=== PATIENT | male | born 1960 | race Caucasian/White ===

== ENCOUNTER 2016-12-06 11:27 | Emergency (ER) | payer OTHER ==
[~2016-12-06] VITALS: Ht 175.3 cm; Wt 81.5 kg
[2016-12-06 11:30] VITALS: BP 132/74; PULSE 74; RESP 20; TEMP 97.7; O2SAT 96
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
[2016-12-06] MEDS ORDERED: CYCLOBENZAPRINE HCL 10 MG TAB PO ONE (13:45)
[2016-12-06] MEDS ORDERED: IBUPROFEN 800 MG TAB PO ONE (13:45)
[2016-12-06] MEDS ORDERED: IBUP800T23 PO (13:46)
[2016-12-06] MEDS ORDERED: CYCL1TAB29 PO (13:46)
[2016-12-06] MEDS ORDERED: LOSA50TA PO (13:59)
[2016-12-06] MEDS ORDERED: SERT-129 PO (13:59)
[2016-12-06] MEDS ORDERED: AMBI10TA PO (13:59)
[2016-12-06] MEDS ORDERED: LEVO.05 PO (13:59)
--- NOTE | 2016-12-07 13:10 | EKG ---
Date Performed: 12/06/2016 Time Performed: 14:01:03 PTAGE: 56 years EKG: SINUS VS AN ECTOPIC ATRIAL RHYTHM RIGHT ATRIAL ENLARGEMENT POSSIBLE LEFT ATRIAL ENLARGEMENT ABNORMAL ECG INTERPRETATION BASED ON A DEFAULT AGE OF 40 YEARS NO PREVIOUS TRACING DOCTOR: Al Rose Interpretating Date/Time 12/07/2016 13:09:35
== END 2016-12-06 14:02 | disposition home or self-care (01) ==
LOC: NEPD 11:27
DX: S16.1XXA Strain of muscle, fascia and tendon at neck level, initial encounter (principal); S39.012A Strain of muscle, fascia and tendon of lower back, initial encounter; M62.838 Other muscle spasm; M25.561 Pain in right knee; I10 Essential (primary) hypertension; V89.2XXA Person injured in unspecified motor-vehicle accident, traffic, initial encounter
CPT/HCPCS: 72050; 72110; 93005; 99283

== ENCOUNTER 2017-01-20 18:00 | Observation (INO) | payer SELFPAY ==
[~2017-01-20 18:00] MED LIST: AMBI10TA PO; CYCL1TAB29 PO; IBUP800T23 PO; LEVO.05 PO; LOSA50TA PO; SERT-129 PO
[2017-01-20 18:10] VITALS: BP 130/79; PULSE 73; RESP 18; TEMP 97.7; O2SAT 98
[2017-01-20] MEDS ORDERED: SODIUM CHLOR 0.9% 1000 ML INJ 1,000 ML IV ONE (18:22)
--- NOTE | 2017-01-20 18:26 | PD ---
HPI Chief Complaint: Neuro Symptoms/ Deficits Time Seen by Provider: 18:22 Travel History International Travel<30 days: No Contact w/Intl Traveler<30days: No Traveled to known affect area: No History of Present Illness HPI 56-year-old male presents with his son with note of left arm and left lower face numbness and tingling since yesterday morning. He states he has no other associated symptoms including weakness or other concerns. He denies taking aspirin. He denies prior history of this or stroke. Quality is tingly. Location is arm and lower face on the left. Patient is a poor historian and his son helps supplement [facility] Past Medical History Hx Anticoagulant Therapy: No Depression: Yes Cardiovascular Problems: Yes Chemotherapy: No Cerebrovascular Accident: No Diabetes: No Diminished Hearing: No Hypertension: Yes Psychiatric: Yes Respiratory: No Triglycerides - High: Yes Influenza Vaccination: No ?: Not Past Surgical History Abdominal Surgery: Yes (HERNIA) Appendectomy: Yes Social History Alcohol Use: No Tobacco Use: No Substance Use: No Allergies-Medications (Allergen,Severity, Reaction): Coded Allergies: No Known Allergies (Unverified , 01/20/17) Reported Meds & Prescriptions Reported Meds & Active Scripts Active Reported Sertraline (Sertraline HCl) 100 Mg Tab 100 Mg PO DAILY Synthroid (Levothyroxine Sodium) 50 Mcg Tab 50 Mcg PO DAILY Losartan (Losartan Potassium) 50 Mg Tab 50 Mg PO DAILY@1600 Review of Systems Except as stated in HPI: all other systems reviewed are Neg Physical Exam Narrative GENERAL: Well-nourished, well-developed patient. SKIN: Warm and dry. HEAD: Normocephalic and atraumatic. EYES: No injection or drainage. ENT: No nasal drainage noted. NECK: Supple, trachea midline. CARDIOVASCULAR: Regular rate and rhythm RESPIRATORY: No increased effort. No accessory muscle use. GASTROINTESTINAL: Abdomen soft, non-tender, nondistended. EXTREMITIES: No edema. NEUROLOGICAL: Awake and alert. Motor and sensory grossly within normal limits except for states it feels tingly to left lower face and entire left arm. Normal speech. No facial droop, no pronator drift, equal grasp bilaterally Data Data Last Documented VS Vital Signs Date Time Temp Pulse Resp B/P (MAP) Pulse Ox O2 Delivery O2 Flow Rate FiO2 01/20/17 18:37 75 18 127/62 (83) 98 Room Air 01/20/17 18:10 97.7 Orders Orders Nursing Bedside Swallow Assess .ONCE (01/20/17 18:22) Activity Bed Rest (01/20/17 18:22) Prothrombin Time / Inr (Pt) (01/20/17 18:22) Act Partial Throm Time (Ptt) (01/20/17 18:22) Complete Blood Count With Diff (01/20/17 18:22) Basic Metabolic Panel (Bmp) (01/20/17 18:22) Creatine Kinase (Cpk) (01/20/17 18:22) Troponin I (01/20/17 18:22) Ua Includes Microscopic (01/20/17 18:22) Drug Screen, Random Urine (01/20/17 18:22) Ct Brain W/O Iv Contrast(Rout) (01/20/17 ) Chest, Single Ap (01/20/17 ) Electrocardiogram (01/20/17 ) Sodium Chlor 0.9% 1000 Ml Inj (Ns 1000 M (01/20/17 18:22) Blood Glucose (01/20/17 18:22) Ecg Monitoring (01/20/17 18:22) Iv Access Insert/Monitor (01/20/17 18:22) NPO (01/20/17 18:22) Oximetry (01/20/17 18:22) Labs Laboratory Tests Test 01/20/17 18:30 01/20/17 18:35 White Blood Count 5.4 TH/MM3 Red Blood Count 4.79 MIL/MM3 Hemoglobin 14.2 GM/DL Hematocrit 43.0 % Mean Corpuscular Volume 89.7 FL Mean Corpuscular Hemoglobin 29.7 PG Mean Corpuscular Hemoglobin Concent 33.1 % Red Cell Distribution Width 13.7 % Platelet Count 228 TH/MM3 Mean Platelet Volume 7.3 FL Neutrophils (%) (Auto) 69.7 % Lymphocytes (%) (Auto) 22.6 % Monocytes (%) (Auto) 6.1 % Eosinophils (%) (Auto) 1.0 % Basophils (%) (Auto) 0.6 % Neutrophils # (Auto) 3.8 TH/MM3 Lymphocytes # (Auto) 1.2 TH/MM3 Monocytes # (Auto) 0.3 TH/MM3 Eosinophils # (Auto) 0.1 TH/MM3 Basophils # (Auto) 0.0 TH/MM3 CBC Comment DIFF FINAL Differential Comment MDM Medical Decision Making Medical Screen Exam Complete: Yes Emergency Medical Condition: Yes Medical Record Reviewed: Yes (past history confirmed) Interpretation(s) EKG shows NSR, no ST elevation or depression, and no arrhythmias. No significant T-wave inversions. Differential Diagnosis TIA, stroke, mass, bleed Narrative Course Will check labs, imaging and reevaluate Physician Communication Physician Communication dr jay will follow workup and admit Jennifer Cruz MD Jan 20, 2017 18:26
[2017-01-20 18:37] VITALS: BP 127/62; PULSE 75; RESP 18; O2SAT 98
[2017-01-20 18:48] LABS: AUTOMATED NEUTROPHIL # 3.8 TH/MM3 (1.8-7.7); BASOPHIL % 0.6 % (0.0-2.0); EOSINOPHIL # 0.1 TH/MM3 (0-0.4); HEMO FLAGS DIFF FINAL; LYMPH % 22.6 % (9.0-44.0); LYMPHOCYTE # 1.2 TH/MM3 (1.0-4.8); MEAN CELL VOLUME 89.7 FL (80.0-100.0); MEAN CORPUSCULAR HEMOGLOBIN 29.7 PG (27.0-34.0); MEAN CORPUSCULAR HGB CONC 33.1 % (32.0-36.0); MONO % 6.1 % (0.0-8.0); NEUT % 69.7 % (16.0-70.0); PLATELET COUNT 228 TH/MM3 (150-450); RED BLOOD COUNT 4.79 MIL/MM3 (4.50-5.90); RED CELL DISTRIBUTION WIDTH 13.7 % (11.6-17.2); WHITE BLOOD COUNT 5.4 TH/MM3 (4.0-11.0)
[2017-01-20 18:49] LABS: BLOOD, URINE NEG (NEG); GLUCOSE,URINE NEG (NEG); KETONE, URINE NEG (NEG); NITRITE,URINE NEG (NEG)
[2017-01-20 18:56] LABS: URINE COLOR STRAW (YELLW/STRAW)
--- NOTE | 2017-01-20 18:57 | RADRPT ---
EXAM DATE/TIME: 01/20/2017 18:43 [facility] COMPARISON: No previous studies available for comparison. INDICATIONS : Dizziness. RADIATION DOSE: 58.38 CTDIvol (mGy) MEDICAL HISTORY : Hypertension. SURGICAL HISTORY : Appendectomy. ENCOUNTER: Initial ACUITY: 1 day PAIN SCALE: 0/10 LOCATION: cranial TECHNIQUE: Multiple contiguous axial images were obtained of the head. Using automated exposure control and adj ustment of the mA and/or kV according to patient size, radiation dose was kept as low as reasonably a chievable to obtain optimal diagnostic quality images. DICOM format image data is available electro nically for review and comparison. FINDINGS: CEREBRUM: The ventricles are normal for age. No evidence of midline shift, mass lesion, hemorrhage or acute in farction. No extra-axial fluid collections are seen. POSTERIOR FOSSA: The cerebellum and brainstem are intact. The 4th ventricle is midline. The cerebellopontine angle i s unremarkable. EXTRACRANIAL: The visualized portion of the orbits is intact. SKULL: The calvaria is intact. No evidence of skull fracture. CONCLUSION: Normal examination for a patient of this age. Yemi Andino MD on January 20, 2017 at 18:55 Board Certified Radiologist. This report was verified electronically.
[2017-01-20 19:00] VITALS: BP 145/93; PULSE 72; RESP 16; O2SAT 97
[2017-01-20 19:00] LABS: CHLORIDE 104 MEQ/L (98-107); POTASSIUM 3.6 MEQ/L (3.5-5.1); SODIUM (NA) 138 MEQ/L (136-145)
[2017-01-20 19:03] LABS: ANION GAP 8 MEQ/L (5-15); BICARBONATE 26.1 MEQ/L (21.0-32.0); BLOOD UREA NITROGEN 13 MG/DL (7-18)
--- NOTE | 2017-01-20 19:04 | RADRPT ---
EXAM DATE/TIME: 01/20/2017 18:52 [facility] COMPARISON: No previous studies available for comparison. INDICATIONS : Palpitations. MEDICAL HISTORY : Hyperparathyroidism. SURGICAL HISTORY : Appendectomy. ENCOUNTER: Initial ACUITY: 1 day PAIN SCORE: 0/10 LOCATION: Bilateral chest FINDINGS: A single view of the chest demonstrates the lungs to be symmetrically aerated without evidence of mas s, infiltrate or effusion. The cardiomediastinal contours are unremarkable. Osseous structures are intact. CONCLUSION: No acute disease. Yemi Andino MD on January 20, 2017 at 19:02 Board Certified Radiologist. This report was verified electronically.
[2017-01-20 19:07] LABS: APTT (PATIENT) 25.2 SEC (24.3-30.1); GLOMERULAR FILTRATION RATE 95 ML/MIN (>89); PROTHROMBIN TIME - PATIENT 11.2 SEC (9.8-11.6)
[2017-01-20 19:11] LABS: CREATINE KINASE 92 U/L (39-308)
--- NOTE | 2017-01-20 19:13 | PD ---
Physical Exam Time Seen by Provider: 19:[address] De La Torre left this patient with me to check the CT scan and make a disposition, likely 23 hour observation. Data Data Last Documented VS Vital Signs Date Time Temp Pulse Resp B/P (MAP) Pulse Ox O2 Delivery O2 Flow Rate FiO2 01/20/17 18:37 75 18 127/62 (83) 98 Room Air 01/20/17 18:10 97.7 Orders Orders Nursing Bedside Swallow Assess .ONCE (01/20/17 18:22) Activity Bed Rest (01/20/17 18:22) Prothrombin Time / Inr (Pt) (01/20/17 18:22) Act Partial Throm Time (Ptt) (01/20/17 18:22) Complete Blood Count With Diff (01/20/17 18:22) Basic Metabolic Panel (Bmp) (01/20/17 18:22) Creatine Kinase (Cpk) (01/20/17 18:22) Troponin I (01/20/17 18:22) Ua Includes Microscopic (01/20/17 18:22) Drug Screen, Random Urine (01/20/17 18:22) Ct Brain W/O Iv Contrast(Rout) (01/20/17 ) Chest, Single Ap (01/20/17 ) Electrocardiogram (01/20/17 ) Sodium Chlor 0.9% 1000 Ml Inj (Ns 1000 M (01/20/17 18:22) Blood Glucose (01/20/17 18:22) Ecg Monitoring (01/20/17 18:22) Iv Access Insert/Monitor (01/20/17 18:22) NPO (01/20/17 18:22) Oximetry (01/20/17 18:22) Labs Laboratory Tests Test 01/20/17 18:30 01/20/17 18:35 Urine Color STRAW Urine Turbidity CLEAR Urine pH 6.0 Urine Specific [place] 1.005 Urine Protein NEG mg/dL Urine Glucose (UA) NEG mg/dL Urine Ketones NEG mg/dL Urine Occult Blood NEG Urine Nitrite NEG Urine Bilirubin NEG Urine Leukocyte Esterase NEG Urine Barbiturates Screen NEG Urine Amphetamines Screen NEG Urine Benzodiazepines Screen NEG White Blood Count 5.4 TH/MM3 Red Blood Count 4.79 MIL/MM3 Hemoglobin 14.2 GM/DL Hematocrit 43.0 % Mean Corpuscular Volume 89.7 FL Mean Corpuscular Hemoglobin 29.7 PG Mean Corpuscular Hemoglobin Concent 33.1 % Red Cell Distribution Width 13.7 % Platelet Count 228 TH/MM3 Mean Platelet Volume 7.3 FL Neutrophils (%) (Auto) 69.7 % Lymphocytes (%) (Auto) 22.6 % Monocytes (%) (Auto) 6.1 % Eosinophils (%) (Auto) 1.0 % Basophils (%) (Auto) 0.6 % Neutrophils # (Auto) 3.8 TH/MM3 Lymphocytes # (Auto) 1.2 TH/MM3 Monocytes # (Auto) 0.3 TH/MM3 Eosinophils # (Auto) 0.1 TH/MM3 Basophils # (Auto) 0.0 TH/MM3 CBC Comment DIFF FINAL Differential Comment Prothrombin Time 11.2 SEC Prothromb Time International Ratio 1.0 RATIO Activated Partial Thromboplast Time 25.2 SEC Blood Urea Nitrogen 13 MG/DL Creatinine 0.84 MG/DL Random Glucose 121 MG/DL Calcium Level 8.2 MG/DL Sodium Level 138 MEQ/L Potassium Level 3.6 MEQ/L Chloride Level 104 MEQ/L Carbon Dioxide Level 26.1 MEQ/L Anion Gap 8 MEQ/L Estimat Glomerular Filtration Rate 95 ML/MIN [facility] Medical Record Reviewed: Yes Supervised Visit with CHRISTOPH: No Differential Diagnosis TIA, ischemic CVA, numbness etiology undetermined, electrolyte imbalance, hypo-/ hyperglycemia, anemia Narrative Course The patient has TIA like symptoms, at this time they diagnosed it would be numbness unknown etiology. There is no evidence for any the other possibilities as listed above. I discussed the patient with Dr. Lyon, the patient will be 23 hour observation to her. Diagnosis Primary Impression: TIA (transient ischemic attack) Admitting Information Admitting Physician Requests: Observation Disposition: 01 DISCHARGE HOME Condition: Stable Dmitri Spring MD Jan 20, 2017 19:13
[2017-01-20] MEDS ORDERED: ASPIRIN 325 MG TAB PO ONE (19:15)
[2017-01-20] MEDS ORDERED: SODIUM CHLORIDE 0.9% FLUSH 5 ML FLUSH IV FLUSH PRN (20:30)
[2017-01-20 20:51] VITALS: BP 123/70
[2017-01-20] MEDS ORDERED: SODIUM CHLORIDE 0.9% FLUSH 5 ML FLUSH IV FLUSH SCH (21:00)
[2017-01-21] MEDS ORDERED: ASPIRIN EC 325 MG TABEC PO SCH (09:00)
[2017-01-21 10:58] LABS: HEMOGLOBIN A1a 0.8 %; HEMOGLOBIN A1b 1.9 %; HEMOGLOBIN P3 3.8 %
--- NOTE | 2017-01-21 16:59 | EKG ---
Date Performed: 01/20/2017 Time Performed: 18:39:33 PTAGE: 56 years EKG: Sinus rhythm Since previous tracing, no significant change noted NORMAL ECG PREVIOUS TRACING : 12/06/2016 14.01 DOCTOR: Zahida Christensen Interpretating Date/Time 01/21/2017 16:58:45
== END 2017-01-20 22:21 | disposition left against medical advice (07) ==
LOC: PHED 18:00 → PHEDA 19:14
PROVIDERS: ADMIT Internal Medicine; ATTEND Internal Medicine
DX: G45.9 Transient cerebral ischemic attack, unspecified (principal); I10 Essential (primary) hypertension; E78.5 Hyperlipidemia, unspecified
CPT/HCPCS: 70450; 71010; 80048; 80307; 81001; 82550; 83036; 84484; 85025; 85610; 85730; 93005; 96360; 96361; 99285; G0378; J7030